=== PATIENT | female | born 1950 | race Caucasian/White ===

== ENCOUNTER → 2016-05-31 | Day surgery (SDC) | payer MEDICARE, BC ==
[~2016-05-31] MED LIST: Bupivacaine 0.25%/EPINEPHrine 1:200,000 30 ML SDV ONE; Bupivacaine 0.5%/EPINEPHrine 1:200,000 50 ML MDV ONE; Lactated Ringers 1,000 ML IV SCH; ceFAZolin 1 GM in Premix Bag 1 BAG IV ONE; methylPREDNISolone Acetate 80 MG/ML SDV ONE
== END ==
LOC: JP.SDS 07:44
PROVIDERS: ATTEND Orthopaedic Surgery
DX: Z53.8 Procedure and treatment not carried out for other reasons (principal)
CPT/HCPCS: J1040

== ENCOUNTER 2016-06-06 05:13 | Day surgery (SDC) | payer MEDICARE, BC ==
[2016-06-06] MEDS ORDERED: Glycopyrrolate 0.2 MG/ML 2 ML SYRINGE IVPUSH ONE (05:52)
[2016-06-06] MEDS ORDERED: Dextrose 5%-Lactated Ringers 1,000 ML IV SCH (06:00)
[2016-06-06] MEDS ORDERED: Propofol 200 MG/20 ML SDV ONE (07:16)
[2016-06-06] MEDS ORDERED: fentaNYL 100 MCG/2 ML SDV ONE (07:16)
[2016-06-06] MEDS ORDERED: Midazolam 1 MG/ML 2 ML SDV ONE (07:16)
[2016-06-06] MEDS ORDERED: Pantoprazole 40 MG Vial IVPUSH ONE (07:40)
[2016-06-06 08:54] VITALS: BP 130/71
--- NOTE | 2016-06-08 14:47 | OR ---
DATE OF PROCEDURE: 06/06/2016 PREOPERATIVE DIAGNOSIS: Recent episodes of nausea and bilious emesis. POSTOPERATIVE DIAGNOSES: 1. Recent episodes of nausea and bilious emesis. 2. Healing erosive gastritis. OPERATIVE PROCEDURE: Esophagogastroduodenoscopy with biopsies of antrum for CLOtest. ANESTHESIA: IV sedation. INDICATION FOR PROCEDURE: This is a 65-year-old female presenting with some recent episodes of bilious emesis and epigastric discomfort. She had been on ibuprofen. Last week she was started on omeprazole 20 mg a day, and at this point had been on it for 6 days and feeling quite a bit better. Plan is to proceed with upper GI endoscopy with biopsies as indicated. Potential risks including bleeding and perforation were discussed and the patient wishes to proceed. DETAILS OF PROCEDURE: The patient was taken to the operating room and placed in a left lateral decubitus position. IV sedation was administered, after which the upper GI endoscope was passed orally through the length of the esophagus and into the stomach with retroflexion view of the fundus, thereafter through the pyloric channel into the proximal duodenum. FINDINGS: Included normal hypopharynx, larynx, upper esophageal sphincter, esophageal body, and mucosal surface. There was some bile present within the esophagus. At the EG junction, no significant hiatal hernia was noted and minimal inflammation noted. There was a small amount of bile also of the stomach and there was a diffuse gastritis. Approximately, this was quite mild there and distally the patient did have some broad fibrinous exudate covering some of the areas of erosion. This appeared to be healing at this point. The pyloric channel and duodenum at the junction of the third and fourth portions were unremarkable. At this point, the patient will be given an initial Protonix IV in the recovery room and then she will be instructed to continue with omeprazole. She has tried to stay off ibuprofen for now. She will be following up with Madhu Gao PA-C in about 2 weeks. If she needs something for her anti-inflammatory medications, she may be a candidate for something like Celebrex in lieu of the ibuprofen. Herrera Chavez MD /[id number]
== END 2016-06-06 09:03 | disposition home or self-care (01) ==
LOC: JP.SDS 05:13
PROVIDERS: ATTEND Surgery
DX: K29.00 Acute gastritis without bleeding (principal); Z91.030 Bee allergy status
CPT/HCPCS: 43239; 87081; C9113; J2250; J2704; J3010; J7042